=== PATIENT | male | born 1965 | race African-American/Black ===

== ENCOUNTER 2020-04-22 12:09 | Emergency (ER) | payer MEDICAID, OTHER ==
[~2020-04-22] VITALS: Ht 165.1 cm; Wt 87.9 kg
[2020-04-22 15:13] LABS: CHLORIDE 111 mEq/L (98-107)
[2020-04-22 15:16] LABS: BASOPHILS % 0.8 % (0.0-2.0); EOSINOPHILS % 4.3 % (0.0-5.0); HEMATOCRIT. 30.8 % (42.0-52.0); LYMPHOCYTES % 25.5 % (20.0-50.0); MEAN CORPUSCULAR HEMOGLOBIN 30.6 pg (28.0-32.0); MEAN CORPUSCULAR VOLUME 93.9 fL (80.0-94.0); MEAN PLATELET VOLUME 9.2 fl (7.4-10.4); MONOCYTES % 8.9 % (2.0-8.0); NEUTROPHILS % 60.5 % (40.0-76.0); PLATELET 307 x1000/uL (130-400); RED BLOOD CELL COUNT 3.27 mill/uL (4.7-6.1); RED CELL DISTRIBUTION WIDTH 15.4 % (11.6-14.6)
[2020-04-22 15:37] LABS: PARTIAL THROMBOPLASTIN TIME 27.1 sec (23.4-31.0); PROTHROMBIN TIME 10.1 sec (9.6-11.0)
[2020-04-22 19:09] VITALS: BP 144/85
== END 2020-04-22 19:20 | disposition home or self-care (01) ==
LOC: ER 12:37
DX: T85.09XA Other mechanical complication of ventricular intracranial (communicating) shunt, initial encounter (principal); I12.0 Hypertensive chronic kidney disease with stage 5 chronic kidney disease or end stage renal disease; N18.6 End stage renal disease; Z99.2 Dependence on renal dialysis
CPT/HCPCS: 36415; 71045; 80053; 82962; 85025; 93005; 93971; 99285

== ENCOUNTER 2021-08-20 09:43 | Inpatient (IN) | payer MEDICAID, OTHER ==
[~2021-08-20] VITALS: Ht 165.1 cm; Wt 89.4 kg
[2021-08-20 12:05] LABS: CHLORIDE 94 mEq/L (98-107)
[2021-08-20] MEDS ORDERED: DEXTROSE 50% WATER 50ML SYRINGE IV NR ×2 (12:45→17:00)
[2021-08-20] MEDS ORDERED: INSULIN REGULAR (HUMULIN R) 300UNITS/3ML VIAL IV NR ×2 (12:45→17:00)
[2021-08-20] MEDS ORDERED: ALBUTEROL (0.083%) 2.5MG/3ML NEB HHN NR (12:45)
[2021-08-20] MEDS ORDERED: CALCIUM CHLORIDE 1GM/10ML SYR IV NR ×2 (12:45→17:00)
[2021-08-20 13:27] LABS: BASOPHILS % 0.7 % (0.0-2.0); EOSINOPHILS % 0.3 % (0.0-5.0); HEMATOCRIT. 37.4 % (42.0-52.0); HEMOGLOBIN. 11.9 g/dL (14.0-18.0); LYMPHOCYTES % 9.3 % (20.0-50.0); MEAN CORPUSCULAR HEMOGLOBIN 30.1 pg (28.0-32.0); MEAN CORPUSCULAR VOLUME 94.3 fL (80.0-94.0); MEAN PLATELET VOLUME 9.6 fl (7.4-10.4); MONOCYTES % 10.9 % (2.0-8.0); NEUTROPHILS % 78.8 % (40.0-76.0); PLATELET 375 x1000/uL (130-400); RED BLOOD CELL COUNT 3.97 mill/uL (4.7-6.1); RED CELL DISTRIBUTION WIDTH 16.4 % (11.6-14.6)
[2021-08-20] MEDS ORDERED: DIPHENHYDRAMINE 50MG/ML VIAL IV PRN (13:45)
[2021-08-20] MEDS ORDERED: LORAZEPAM 0.5MG TABLET PO PRN (13:45)
[2021-08-20] MEDS ORDERED: DOCUSATE SODIUM 100MG CAPSULE PO PRN (13:45)
[2021-08-20] MEDS ORDERED: ACETAMINOPHEN 650MG SUPP PR PRN (13:45)
[2021-08-20] MEDS ORDERED: MAGNESIUM/ALUMINUM HYDROXIDE/SIMETHICONE 30ML UDC PO PRN (13:45)
[2021-08-20] MEDS ORDERED: ONDANSETRON HCL 4MG/2ML INJ IV PRN (13:45)
[2021-08-20] MEDS ORDERED: HYDROCODONE/ACETAMINOPHEN 5/325MG TABLET PO PRN (13:45)
[2021-08-20] MEDS ORDERED: IPRATROPIUM/ALBUTEROL 0.5-3(2.5)MG/3ML NEB NEB PRN (13:45)
[2021-08-20] MEDS ORDERED: NALOXONE HCL 0.4MG/ML VIAL IV PRN (14:00)
[2021-08-20] MEDS: METHYLPREDNISOLONE SOD SUCC 40 MG/ML VIAL IV SCH ×2 (14:57→22:00)
[2021-08-20] MEDS ORDERED: AZITHROMYCIN 500 MG in DEXT 5% WATER 250 ML IV SCH (15:00)
[2021-08-20] MEDS ORDERED: CEFTRIAXONE 1 G PREMIX 50 ML IV SCH (15:00)
[2021-08-20] MEDS ORDERED: SODIUM POLYSTYRENE SULFONATE 15 G/60 ML BOT PO NR (17:00)
[2021-08-20] MEDS ORDERED: SODIUM BICARBONATE 8.4% 1 MEQ/ML 50ML SYR IV NR (17:00)
[2021-08-20 18:18] LABS: PROTHROMBIN TIME 10.6 sec (9.6-11.0)
[2021-08-20 18:57] LABS: HEPATITIS B SURFACE ANTIGEN NEGATIVE
[2021-08-20] MEDS: FAMOTIDINE 20MG TABLET PO SCH (21:00)
[2021-08-21] MEDS: METHYLPREDNISOLONE SOD SUCC 40 MG/ML VIAL IV SCH ×3 (06:38→21:12)
[2021-08-21 15:00] VITALS: BP_SYST 123; BP_SYST 126; BP_DIAS 79
[2021-08-21] MEDS ORDERED: CEFTRIAXONE 1,000 MG in DEXTROSE 5% WATER 50 ML IV SCH (15:00)
[2021-08-21 16:00] VITALS: BP 142/84
[2021-08-21] MEDS: CEFTRIAXONE 1,000 MG in DEXTROSE 5% WATER 50 ML IV SCH (16:00)
[2021-08-21] MEDS: AZITHROMYCIN 500 MG in DEXT 5% WATER 250 ML IV SCH (16:30)
[2021-08-21] MEDS ORDERED: APIX5TAB PO (16:36)
[2021-08-21] MEDS ORDERED: CHOL-36 (16:36)
[2021-08-21] MEDS ORDERED: FOLI0.8T23 MT (16:36)
[2021-08-21] MEDS ORDERED: BENA10TA74 PO (16:36)
[2021-08-21] MEDS ORDERED: FURO40TA5 PO (16:36)
[2021-08-21] MEDS ORDERED: ATOR10TA69 PO (16:36)
[2021-08-21] MEDS ORDERED: CALC667C PO (16:36)
[2021-08-21 18:19] LABS: BG BASE EXCESS -6.7 mmol/L (-2.0-2.0); BG CARBOXYHEMOGLOBIN 0.3 % (0.5-1.5); BG DEOXYHEMOGLOBIN 10.2 % (0.0-5.0); BG FRACTION INSPIRED OXYGEN 21; BG HCO3 ACT 18.7 mmol/L (22.0-26.0); BG METHEMOGLOBIN 0.3 % (0.0-1.5); BG OXYGEN SATURATION 89.7 % (92.0-98.5); BG OXYHEMOGLOBIN 89.2 % (94.0-97.0); BG PCO2 37.2 mmHg (35.0-45.0); BG PH 7.319 (7.350-7.450); BG PO2 62.3 mmHg (75.0-100.0); BG SAMPLE SITE LEFT RADIAL; BG TOTAL HEMOGLOBIN 13.3 g/dL (12.0-18.0); BG VENT MODE ROOM AIR
[2021-08-21 20:00] VITALS: BP 130/80
[2021-08-21] MEDS: FAMOTIDINE 20MG TABLET PO SCH (21:12)
[2021-08-21 21:29] LABS: HEMATOCRIT 35.5 % (42.0-52.0); HEMOGLOBIN 11.6 g/dL (14.0-18.0); MEAN CORPUSCULAR HEMOGLOBIN 30.5 pg (28.0-32.0); MEAN CORPUSCULAR VOLUME 93.8 fL (80.0-94.0); PLATELET 445 x1000/uL (130-400); RED BLOOD CELL COUNT 3.78 mill/uL (4.7-6.1); RED CELL DISTRIBUTION WIDTH 16.2 % (11.6-14.6)
[2021-08-21 21:42] LABS: CHLORIDE 94 mEq/L (98-107)
[2021-08-21 21:53] LABS: CREATINE KINASE MB FRACTION 4.9 ng/mL (0.5-3.6)
[2021-08-21 22:50] LABS: CREATINE KINASE 1221 IU/L (39-308)
[2021-08-22] VITALS: BP 150/89
[2021-08-22 04:48] LABS: HEPATITIS B SURFACE AB < 3.1 mIU/mL
[2021-08-22 06:00] VITALS: BP 146/84
[2021-08-22] MEDS: METHYLPREDNISOLONE SOD SUCC 40 MG/ML VIAL IV SCH ×3 (06:31→21:22)
[2021-08-22] MEDS: ACETAMINOPHEN 325MG TABLET PO PRN (10:03)
[2021-08-22 10:47] LABS: HEMATOCRIT. 36.8 % (42.0-52.0); MEAN CORPUSCULAR HEMOGLOBIN 30.3 pg (28.0-32.0); MEAN PLATELET VOLUME 9.9 fl (7.4-10.4); PLATELET 425 x1000/uL (130-400); RED BLOOD CELL COUNT 3.96 mill/uL (4.7-6.1); RED CELL DISTRIBUTION WIDTH 16.5 % (11.6-14.6)
[2021-08-22 12:00] VITALS: BP 123/61
[2021-08-22] MEDS: CEFTRIAXONE 1,000 MG in DEXTROSE 5% WATER 50 ML IV SCH (13:10)
[2021-08-22] MEDS ORDERED: LIDOCAINE HCL/PF 1% 2ML VIAL ONE (13:51)
[2021-08-22] MEDS ORDERED: SODIUM POLYSTYRENE SULFONATE 15 G/60 ML BOT PO NR (14:09)
[2021-08-22] MEDS: AZITHROMYCIN 500 MG in DEXT 5% WATER 250 ML IV SCH (14:37)
[2021-08-22 16:00] VITALS: BP 122/59
[2021-08-22 18:27] LABS: BG BASE EXCESS -10.5 mmol/L (-2.0-2.0); BG CARBOXYHEMOGLOBIN 0.1 % (0.5-1.5); BG DEOXYHEMOGLOBIN 7.3 % (0.0-5.0); BG FRACTION INSPIRED OXYGEN 21; BG METHEMOGLOBIN 0.4 % (0.0-1.5); BG OXYGEN SATURATION 92.7 % (92.0-98.5); BG OXYHEMOGLOBIN 92.2 % (94.0-97.0); BG PCO2 37.8 mmHg (35.0-45.0); BG PH 7.245 (7.350-7.450); BG PO2 82.7 mmHg (75.0-100.0); BG SAMPLE SITE RIGHT RADIAL; BG TOTAL HEMOGLOBIN 12.4 g/dL (12.0-18.0); BG VENT MODE ROOM AIR
[2021-08-22 19:51] LABS: PLATELET ESTIMATE INCREASED
[2021-08-22 20:00] VITALS: BP 120/69
[2021-08-22] MEDS: FAMOTIDINE 20MG TABLET PO SCH (21:22)
[2021-08-23] VITALS: BP 124/82
[2021-08-23 04:00] VITALS: BP 118/74
[2021-08-23] MEDS: METHYLPREDNISOLONE SOD SUCC 40 MG/ML VIAL IV SCH (05:45)
[2021-08-23 08:00] VITALS: BP 111/64
[2021-08-23 08:22] LABS: HEMATOCRIT. 33.5 % (42.0-52.0); HEMOGLOBIN. 10.7 g/dL (14.0-18.0); MEAN CORPUSCULAR HEMOGLOBIN 29.8 pg (28.0-32.0); MEAN CORPUSCULAR VOLUME 93.4 fL (80.0-94.0); MEAN PLATELET VOLUME 10.2 fl (7.4-10.4); PLATELET 455 x1000/uL (130-400); RED BLOOD CELL COUNT 3.58 mill/uL (4.7-6.1); RED CELL DISTRIBUTION WIDTH 15.9 % (11.6-14.6)
[2021-08-23 10:40] LABS: PLATELET ESTIMATE INCREASED
[2021-08-23] MEDS ORDERED: SODIUM POLYSTYRENE SULFONATE 15 G/60 ML BOT PO NR (10:45)
[2021-08-23 12:00] VITALS: BP 121/66
[2021-08-23 16:00] VITALS: BP 138/88
[2021-08-23] MEDS ORDERED: DEXA4TAB PO (16:18)
[2021-08-23] MEDS ORDERED: ALBU90AE INH (16:18)
[2021-08-23] MEDS: AZITHROMYCIN 500 MG in DEXT 5% WATER 250 ML IV SCH (16:59)
[2021-08-23] MEDS: CEFTRIAXONE 1,000 MG in DEXTROSE 5% WATER 50 ML IV SCH (16:59)
[2021-08-23 17:28] LABS: BG BASE EXCESS -8.7 mmol/L (-2.0-2.0); BG CARBOXYHEMOGLOBIN 0.3 % (0.5-1.5); BG DEOXYHEMOGLOBIN 6.5 % (0.0-5.0); BG HCO3 ACT 15.5 mmol/L (22.0-26.0); BG METHEMOGLOBIN 0.1 % (0.0-1.5); BG OXYGEN SATURATION 93.5 % (92.0-98.5); BG OXYHEMOGLOBIN 93.1 % (94.0-97.0); BG PCO2 28.5 mmHg (35.0-45.0); BG PH 7.352 (7.350-7.450); BG PO2 81.8 mmHg (75.0-100.0); BG SAMPLE SITE RIGHT RADIAL; BG TOTAL HEMOGLOBIN 12.4 g/dL (12.0-18.0); BG VENT MODE ROOM AIR
[2021-08-23 20:00] VITALS: BP 128/87
[2021-08-23 20:56] LABS: HEPATITIS B SURFACE ANTIGEN NEGATIVE
[2021-08-23] MEDS: FAMOTIDINE 20MG TABLET PO SCH (21:17)
[2021-08-24] VITALS: BP 126/78
[2021-08-24 04:00] VITALS: BP 128/75
[2021-08-24 08:00] VITALS: BP 132/73
[2021-08-24 08:01] LABS: HEMATOCRIT. 33.4 % (42.0-52.0); HEMOGLOBIN. 10.7 g/dL (14.0-18.0); MEAN CORPUSCULAR HEMOGLOBIN 30.1 pg (28.0-32.0); MEAN CORPUSCULAR VOLUME 93.4 fL (80.0-94.0); MEAN PLATELET VOLUME 9.7 fl (7.4-10.4); PLATELET 441 x1000/uL (130-400); RED BLOOD CELL COUNT 3.57 mill/uL (4.7-6.1); RED CELL DISTRIBUTION WIDTH 15.8 % (11.6-14.6)
[2021-08-24] MEDS: METHYLPREDNISOLONE SOD SUCC 40 MG/ML VIAL IV SCH (09:21)
[2021-08-24 10:54] LABS: PLATELET ESTIMATE INCREASED
[2021-08-24 12:00] VITALS: BP 131/84
[2021-08-24] MEDS: ENOXAPARIN 100MG/ML SYR SUBCUT SCH (12:23)
[2021-08-24] MEDS: CEFTRIAXONE 1,000 MG in DEXTROSE 5% WATER 50 ML IV SCH (13:58)
[2021-08-24] MEDS: AZITHROMYCIN 500 MG in DEXT 5% WATER 250 ML IV SCH (15:10)
[2021-08-24 16:00] VITALS: BP 143/74
[2021-08-24 20:00] VITALS: BP 112/72
[2021-08-24] MEDS: FAMOTIDINE 20MG TABLET PO SCH (21:35)
[2021-08-25] VITALS (7 sets, daily range): BP systolic 122–207; BP diastolic 63–104
[2021-08-25] MEDS: MORPHINE SULFATE 2 MG/ML CPJ (NOT FOR IM USE) IV PRN ×2 (04:00→09:59)
[2021-08-25] MEDS: CLONIDINE 0.1MG TABLET PO PRN ×2 (04:15→21:47)
[2021-08-25 06:12] LABS: HEMATOCRIT. 34.9 % (42.0-52.0); HEMOGLOBIN. 11.4 g/dL (14.0-18.0); MEAN CORPUSCULAR HEMOGLOBIN 30.5 pg (28.0-32.0); MEAN PLATELET VOLUME 9.7 fl (7.4-10.4); PLATELET 426 x1000/uL (130-400); RED BLOOD CELL COUNT 3.75 mill/uL (4.7-6.1)
[2021-08-25] MEDS: METHYLPREDNISOLONE SOD SUCC 40 MG/ML VIAL IV SCH (09:53)
[2021-08-25] MEDS: ENOXAPARIN 100MG/ML SYR SUBCUT SCH (13:28)
[2021-08-25] MEDS: CEFTRIAXONE 1,000 MG in DEXTROSE 5% WATER 50 ML IV SCH (14:09)
[2021-08-25 17:43] LABS: PLATELET ESTIMATE INCREASED
[2021-08-25] MEDS: FAMOTIDINE 20MG TABLET PO SCH (21:48)
[2021-08-25] MEDS: ACETAMINOPHEN 325MG TABLET PO PRN (21:48)
[2021-08-26 04:00] VITALS: BP 131/78
[2021-08-26] MEDS ORDERED: IOHEXOL-300 100 ML BOTTLE ONE (07:28)
[2021-08-26] MEDS ORDERED: FENTANYL CITRATE/PF 50MCG/ML 2ML VIAL ONE (07:28)
[2021-08-26] MEDS ORDERED: LIDOCAINE HCL 1% 20ML VIAL (Pyxis) INJ ONE (07:28)
[2021-08-26] MEDS ORDERED: HEPARIN 1,000 UNITS PREMIX 0 ML IV ONE (07:28)
[2021-08-26 08:00] VITALS: BP 150/87
[2021-08-26] MEDS: METHYLPREDNISOLONE SOD SUCC 40 MG/ML VIAL IV SCH (08:57)
[2021-08-26] MEDS: MORPHINE SULFATE 2 MG/ML CPJ (NOT FOR IM USE) IV PRN (08:58)
[2021-08-26 12:00] VITALS: BP 138/70
[2021-08-26] MEDS: ENOXAPARIN 100MG/ML SYR SUBCUT SCH (12:13)
[2021-08-26] MEDS: CEFTRIAXONE 1,000 MG in DEXTROSE 5% WATER 50 ML IV SCH (13:59)
[2021-08-26 16:00] VITALS: BP 147/73
[2021-08-26] MEDS: GABAPENTIN 100MG CAPSULE PO SCH ×2 (17:44→22:05)
[2021-08-26 20:00] VITALS: BP 138/67
[2021-08-26] MEDS: FAMOTIDINE 20MG TABLET PO SCH (22:05)
[2021-08-26 22:06] LABS: HEMATOCRIT. 37.1 % (42.0-52.0); HEMOGLOBIN. 11.6 g/dL (14.0-18.0); MEAN PLATELET VOLUME 9.9 fl (7.4-10.4); PLATELET 383 x1000/uL (130-400); RED BLOOD CELL COUNT 3.87 mill/uL (4.7-6.1); RED CELL DISTRIBUTION WIDTH 16.2 % (11.6-14.6)
[2021-08-26 23:03] LABS: PLATELET ESTIMATE NORMAL
[2021-08-27] VITALS: BP 134/67
[2021-08-27] MEDS: MORPHINE SULFATE 2 MG/ML CPJ (NOT FOR IM USE) IV PRN ×2 (02:15→09:09)
[2021-08-27 04:00] VITALS: BP 164/94
[2021-08-27] MEDS: CLONIDINE 0.1MG TABLET PO PRN (05:37)
[2021-08-27 07:29] LABS: HEMATOCRIT 30.3 % (42.0-52.0); HEMOGLOBIN 9.8 g/dL (14.0-18.0); MEAN CORPUSCULAR HEMOGLOBIN 30.3 pg (28.0-32.0); MEAN CORPUSCULAR VOLUME 93.7 fL (80.0-94.0); PLATELET 375 x1000/uL (130-400); RED BLOOD CELL COUNT 3.23 mill/uL (4.7-6.1); RED CELL DISTRIBUTION WIDTH 15.9 % (11.6-14.6)
[2021-08-27 08:00] VITALS: BP 128/79
[2021-08-27] MEDS: METHYLPREDNISOLONE SOD SUCC 40 MG/ML VIAL IV SCH (09:09)
[2021-08-27] MEDS: GABAPENTIN 100MG CAPSULE PO SCH ×2 (09:09→21:13)
[2021-08-27 12:00] VITALS: BP 126/73
[2021-08-27] MEDS: ENOXAPARIN 100MG/ML SYR SUBCUT SCH (12:26)
[2021-08-27] MEDS: CEFTRIAXONE 1,000 MG in DEXTROSE 5% WATER 50 ML IV SCH (12:27)
[2021-08-27 16:00] VITALS: BP 131/72
[2021-08-27 20:00] VITALS: BP 155/88
[2021-08-27] MEDS: FAMOTIDINE 20MG TABLET PO SCH (21:13)
[2021-08-28 00:26] VITALS: BP 99/54
[2021-08-28 04:00] VITALS: BP 142/66
[2021-08-28 08:00] VITALS: BP 138/68
[2021-08-28] MEDS: METHYLPREDNISOLONE SOD SUCC 40 MG/ML VIAL IV SCH (08:57)
[2021-08-28] MEDS: GABAPENTIN 100MG CAPSULE PO SCH ×2 (08:57→21:25)
[2021-08-28] MEDS: ENOXAPARIN 100MG/ML SYR SUBCUT SCH (11:40)
[2021-08-28] MEDS: CEFTRIAXONE 1,000 MG in DEXTROSE 5% WATER 50 ML IV SCH (11:50)
[2021-08-28] MEDS: MORPHINE SULFATE 2 MG/ML CPJ (NOT FOR IM USE) IV PRN (11:55)
[2021-08-28 12:00] VITALS: BP 163/86
[2021-08-28] MEDS ORDERED: CEFTRIAXONE 1 G PREMIX 50 ML IV SCH (12:00)
[2021-08-28 16:00] VITALS: BP 136/63
[2021-08-28 20:00] VITALS: BP 145/82
[2021-08-28] MEDS: FAMOTIDINE 20MG TABLET PO SCH (21:25)
[2021-08-29] VITALS: BP 177/132
[2021-08-29] MEDS: CLONIDINE 0.1MG TABLET PO PRN (00:28)
[2021-08-29 04:00] VITALS: BP 120/79
[2021-08-29 08:00] VITALS: BP 125/66
[2021-08-29] MEDS: METHYLPREDNISOLONE SOD SUCC 40 MG/ML VIAL IV SCH (08:27)
[2021-08-29] MEDS: GABAPENTIN 100MG CAPSULE PO SCH ×2 (08:27→21:39)
[2021-08-29] MEDS: MORPHINE SULFATE 2 MG/ML CPJ (NOT FOR IM USE) IV PRN (08:28)
[2021-08-29] MEDS: ENOXAPARIN 100MG/ML SYR SUBCUT SCH (11:59)
[2021-08-29 12:00] VITALS: BP 120/61
[2021-08-29] MEDS: CEFTRIAXONE 1,000 MG in DEXTROSE 5% WATER 50 ML IV SCH (12:00)
[2021-08-29 16:00] VITALS: BP_SYST 114; BP_SYST 138; BP_SYST 156; BP_DIAS 70; BP_DIAS 72; BP_DIAS 83
[2021-08-29 20:00] VITALS: BP 128/69
[2021-08-29] MEDS: FAMOTIDINE 20MG TABLET PO SCH (21:39)
[2021-08-30] VITALS: BP_SYST 107; BP_SYST 159; BP_DIAS 64; BP_DIAS 85
[2021-08-30 04:00] VITALS: BP 156/76
[2021-08-30 08:00] VITALS: BP 131/62
[2021-08-30] MEDS: GABAPENTIN 100MG CAPSULE PO SCH ×2 (09:07→22:07)
[2021-08-30] MEDS: METHYLPREDNISOLONE SOD SUCC 40 MG/ML VIAL IV SCH (09:07)
[2021-08-30] MEDS: ENOXAPARIN 100MG/ML SYR SUBCUT SCH (09:08)
[2021-08-30 09:17] LABS: BASOPHILS % 0.4 % (0.0-2.0); LYMPHOCYTES % 12.3 % (20.0-50.0); MEAN CORPUSCULAR HEMOGLOBIN 29.4 pg (28.0-32.0); MEAN CORPUSCULAR VOLUME 94.9 fL (80.0-94.0); MEAN PLATELET VOLUME 9.9 fl (7.4-10.4); NEUTROPHILS % 75.3 % (40.0-76.0); PLATELET 355 x1000/uL (130-400); RED BLOOD CELL COUNT 3.06 mill/uL (4.7-6.1); RED CELL DISTRIBUTION WIDTH 15.9 % (11.6-14.6)
[2021-08-30] MEDS: IPRATROPIUM/ALBUTEROL 0.5-3(2.5)MG/3ML NEB NEB SCH (09:58)
[2021-08-30 12:00] VITALS: BP 136/62
[2021-08-30] MEDS: HYDROCODONE/ACETAMINOPHEN 5/325MG TABLET PO PRN ×2 (13:09→22:09)
[2021-08-30 16:00] VITALS: BP 151/86
[2021-08-30 20:36] LABS: HEPATITIS B SURFACE ANTIGEN NEGATIVE
[2021-08-30] MEDS ORDERED: EPOETIN ALFA-EPBX 10,000 UNIT/ML VIAL SUBCUT SCH (21:00)
[2021-08-30] MEDS: FAMOTIDINE 20MG TABLET PO SCH (22:07)
[2021-08-30] MEDS: CLONIDINE 0.1MG TABLET PO PRN (22:08)
[2021-08-31] VITALS: BP 116/62
[2021-08-31 04:00] VITALS: BP 120/50
[2021-08-31 08:00] VITALS: BP 163/83
[2021-08-31 08:10] LABS: HEMATOCRIT. 32.2 % (42.0-52.0); HEMOGLOBIN. 10.2 g/dL (14.0-18.0); MEAN CORPUSCULAR HEMOGLOBIN 30.1 pg (28.0-32.0); MEAN CORPUSCULAR VOLUME 95.5 fL (80.0-94.0); MEAN PLATELET VOLUME 10.5 fl (7.4-10.4); PLATELET 372 x1000/uL (130-400); RED BLOOD CELL COUNT 3.37 mill/uL (4.7-6.1)
[2021-08-31] MEDS: METHYLPREDNISOLONE SOD SUCC 40 MG/ML VIAL IV SCH (09:33)
[2021-08-31] MEDS: GABAPENTIN 100MG CAPSULE PO SCH ×2 (09:33→23:50)
[2021-08-31] MEDS: ENOXAPARIN 100MG/ML SYR SUBCUT SCH (09:34)
[2021-08-31] MEDS: EPOETIN ALFA-EPBX 10,000 UNIT/ML VIAL SUBCUT SCH (09:38)
[2021-08-31] MEDS: MORPHINE SULFATE 2 MG/ML CPJ (NOT FOR IM USE) IV PRN (09:49)
[2021-08-31 12:00] VITALS: BP 120/75
[2021-08-31 13:50] LABS: PLATELET ESTIMATE NORMAL
[2021-08-31 16:00] VITALS: BP 95/52
[2021-08-31 20:27] VITALS: BP 152/76
[2021-08-31] MEDS: FAMOTIDINE 20MG TABLET PO SCH (23:50)
[2021-09-01 00:30] VITALS: BP 168/88
[2021-09-01 04:00] VITALS: BP 148/58
[2021-09-01 06:10] LABS: BASOPHILS % 0.2 % (0.0-2.0); HEMATOCRIT. 30.1 % (42.0-52.0); HEMOGLOBIN. 9.5 g/dL (14.0-18.0); LYMPHOCYTES % 12.4 % (20.0-50.0); MEAN CORPUSCULAR HEMOGLOBIN 29.9 pg (28.0-32.0); MEAN CORPUSCULAR VOLUME 94.2 fL (80.0-94.0); MEAN PLATELET VOLUME 10.4 fl (7.4-10.4); MONOCYTES % 10.5 % (2.0-8.0); NEUTROPHILS % 76.9 % (40.0-76.0); PLATELET 381 x1000/uL (130-400); RED BLOOD CELL COUNT 3.19 mill/uL (4.7-6.1)
[2021-09-01] MEDS: GABAPENTIN 100MG CAPSULE PO SCH ×2 (09:51→20:47)
[2021-09-01] MEDS: METHYLPREDNISOLONE SOD SUCC 40 MG/ML VIAL IV SCH (09:51)
[2021-09-01] MEDS: SODIUM POLYSTYRENE SULFONATE 15 G/60 ML BOT PO SCH ×2 (11:00→13:02)
[2021-09-01] MEDS: ENOXAPARIN 100MG/ML SYR SUBCUT SCH ×2 (11:00→13:03)
[2021-09-01 12:00] VITALS: BP 129/60
[2021-09-01 16:00] VITALS: BP 176/79
[2021-09-01 20:00] VITALS: BP 117/56
[2021-09-01] MEDS: FAMOTIDINE 20MG TABLET PO SCH (20:47)
[2021-09-02] VITALS: BP 109/62
[2021-09-02 04:00] VITALS: BP 115/59
[2021-09-02 08:31] LABS: HEMATOCRIT. 33.8 % (42.0-52.0); HEMOGLOBIN. 10.6 g/dL (14.0-18.0); MEAN CORPUSCULAR HEMOGLOBIN 29.7 pg (28.0-32.0); MEAN PLATELET VOLUME 11.3 fl (7.4-10.4); PLATELET 264 x1000/uL (130-400); RED BLOOD CELL COUNT 3.56 mill/uL (4.7-6.1); RED CELL DISTRIBUTION WIDTH 15.7 % (11.6-14.6)
[2021-09-02] MEDS: GABAPENTIN 100MG CAPSULE PO SCH ×2 (08:49→20:38)
[2021-09-02] MEDS ORDERED: SODIUM BICARBONATE 8.4% 1 MEQ/ML 50ML SYR IV NR (10:45)
[2021-09-02] MEDS ORDERED: DEXTROSE 50% WATER 50ML SYRINGE IV NR (10:45)
[2021-09-02] MEDS ORDERED: SODIUM POLYSTYRENE SULFONATE 15 G/60 ML BOT PO NR (10:45)
[2021-09-02] MEDS ORDERED: INSULIN REGULAR (HUMULIN R) 300UNITS/3ML VIAL IV NR (10:45)
[2021-09-02] MEDS ORDERED: ALBUTEROL (0.083%) 2.5MG/3ML NEB HHN NR (10:45)
[2021-09-02] MEDS: ENOXAPARIN 100MG/ML SYR SUBCUT SCH (10:56)
[2021-09-02] MEDS ORDERED: CALCIUM GLUCONATE 1GM PREMIX 50 ML IV NR (11:30)
[2021-09-02 12:00] VITALS: BP 164/84
[2021-09-02] MEDS ORDERED: VANCOMYCIN 2,000 MG in DEXT 5% WATER 500 ML IV NR (13:00)
[2021-09-02 16:00] VITALS: BP 120/57
[2021-09-02 17:55] LABS: PLATELET ESTIMATE NORMAL
[2021-09-02] MEDS: FAMOTIDINE 20MG TABLET PO SCH (20:38)
[2021-09-02] MEDS: PIPERACILLIN/TAZOBACTAM 3.375 G in DEXTROSE 5% WATER 50 ML IV SCH (20:41)
[2021-09-02 20:43] VITALS: BP 184/85
[2021-09-03] VITALS: BP 171/87
[2021-09-03] MEDS: CLONIDINE 0.1MG TABLET PO PRN (00:17)
[2021-09-03] MEDS: ACETAMINOPHEN 325MG TABLET PO PRN (00:18)
[2021-09-03 04:00] VITALS: BP 98/45
[2021-09-03 08:00] VITALS: BP 114/54
[2021-09-03] MEDS: GABAPENTIN 100MG CAPSULE PO SCH ×2 (09:31→21:22)
[2021-09-03] MEDS: PIPERACILLIN/TAZOBACTAM 3.375 G in DEXTROSE 5% WATER 50 ML IV SCH ×2 (09:31→21:22)
[2021-09-03] MEDS: GUAIFENESIN 200MG/10ML SUGAR FREE UDC PO PRN ×2 (10:08→18:47)
[2021-09-03] MEDS: ENOXAPARIN 100MG/ML SYR SUBCUT SCH (10:08)
[2021-09-03 12:00] VITALS: BP 143/76
[2021-09-03] MEDS: HYDROCODONE/ACETAMINOPHEN 5/325MG TABLET PO PRN (13:13)
[2021-09-03 16:00] VITALS: BP 133/75
[2021-09-03] MEDS: FAMOTIDINE 20MG TABLET PO SCH (21:23)
[2021-09-04] VITALS: BP 113/55
[2021-09-04 00:35] LABS: HEMATOCRIT. 25.7 % (42.0-52.0); MEAN CORPUSCULAR VOLUME 93.6 fL (80.0-94.0); MEAN PLATELET VOLUME 10.7 fl (7.4-10.4); PLATELET 283 x1000/uL (130-400); RED BLOOD CELL COUNT 2.75 mill/uL (4.7-6.1); RED CELL DISTRIBUTION WIDTH 15.4 % (11.6-14.6)
[2021-09-04 01:10] LABS: HEPATITIS B SURFACE ANTIGEN NEGATIVE
[2021-09-04 01:42] LABS: PLATELET ESTIMATE NORMAL
[2021-09-04 04:00] VITALS: BP 109/52
[2021-09-04 08:00] VITALS: BP 114/58
[2021-09-04] MEDS: GABAPENTIN 100MG CAPSULE PO SCH ×2 (09:09→20:52)
[2021-09-04] MEDS: PIPERACILLIN/TAZOBACTAM 3.375 G in DEXTROSE 5% WATER 50 ML IV SCH ×2 (09:09→20:51)
[2021-09-04] MEDS: ENOXAPARIN 100MG/ML SYR SUBCUT SCH (10:47)
[2021-09-04] MEDS ORDERED: INSULIN REGULAR (HUMULIN R) 300UNITS/3ML VIAL IV NR (11:23)
[2021-09-04] MEDS ORDERED: DEXTROSE 50% WATER 50ML SYRINGE IV NR (11:24)
[2021-09-04] MEDS ORDERED: SODIUM BICARBONATE 8.4% 1 MEQ/ML 50ML SYR IV NR (11:25)
[2021-09-04 12:00] VITALS: BP 108/56
[2021-09-04] MEDS ORDERED: CALCIUM GLUCONATE 1GM PREMIX 50 ML IV NR (13:00)
[2021-09-04 16:00] VITALS: BP 115/76
[2021-09-04 20:00] VITALS: BP 123/70
[2021-09-04] MEDS: FAMOTIDINE 20MG TABLET PO SCH (20:52)
[2021-09-04] MEDS: EPOETIN ALFA-EPBX 10,000 UNIT/ML VIAL SUBCUT SCH (22:15)
[2021-09-04] MEDS: ACETAMINOPHEN 325MG TABLET PO PRN (23:38)
[2021-09-05] VITALS: BP 136/72
[2021-09-05 04:00] VITALS: BP 111/56
[2021-09-05 08:00] VITALS: BP 125/69
[2021-09-05 08:03] LABS: BASOPHILS % 0.6 % (0.0-2.0); EOSINOPHILS % 0.1 % (0.0-5.0); HEMOGLOBIN. 7.9 g/dL (14.0-18.0); LYMPHOCYTES % 9.3 % (20.0-50.0); MEAN CORPUSCULAR HEMOGLOBIN 29.9 pg (28.0-32.0); MEAN CORPUSCULAR VOLUME 94.1 fL (80.0-94.0); MEAN PLATELET VOLUME 9.8 fl (7.4-10.4); MONOCYTES % 9.9 % (2.0-8.0); NEUTROPHILS % 80.1 % (40.0-76.0); PLATELET 300 x1000/uL (130-400); RED BLOOD CELL COUNT 2.65 mill/uL (4.7-6.1); RED CELL DISTRIBUTION WIDTH 15.5 % (11.6-14.6)
[2021-09-05] MEDS: PIPERACILLIN/TAZOBACTAM 3.375 G in DEXTROSE 5% WATER 50 ML IV SCH (08:50)
[2021-09-05] MEDS: GABAPENTIN 100MG CAPSULE PO SCH ×2 (08:50→21:38)
[2021-09-05 12:00] VITALS: BP 116/62
[2021-09-05] MEDS ORDERED: LIDOCAINE HCL 1% 20ML VIAL (Pyxis) INJ ONE (12:49)
[2021-09-05 16:00] VITALS: BP 143/77
[2021-09-05] MEDS ORDERED: VANCOMYCIN 1G PREMIX 200 ML IV NR (18:00)
[2021-09-05 20:00] VITALS: BP 110/58
[2021-09-05] MEDS: MEROPENEM 1,000 MG in SODIUM CHLORIDE 0.9% 100 ML IV SCH (20:59)
[2021-09-05] MEDS: FAMOTIDINE 20MG TABLET PO SCH (21:38)
[2021-09-06] VITALS: BP 114/51
[2021-09-06 04:00] VITALS: BP 152/68
[2021-09-06 07:02] LABS: HEMATOCRIT. 24.4 % (42.0-52.0); HEMOGLOBIN. 7.8 g/dL (14.0-18.0); MEAN CORPUSCULAR VOLUME 93.8 fL (80.0-94.0); MEAN PLATELET VOLUME 10.3 fl (7.4-10.4); PLATELET 254 x1000/uL (130-400); RED CELL DISTRIBUTION WIDTH 15.6 % (11.6-14.6)
[2021-09-06 07:40] VITALS: BP 127/73
[2021-09-06] MEDS: GABAPENTIN 100MG CAPSULE PO SCH ×2 (08:47→21:44)
[2021-09-06 11:23] LABS: PLATELET ESTIMATE NORMAL
[2021-09-06 12:00] VITALS: BP 125/71
[2021-09-06] MEDS: MEROPENEM 1,000 MG in SODIUM CHLORIDE 0.9% 100 ML IV SCH (12:23)
[2021-09-06 16:00] VITALS: BP 135/63
[2021-09-06] MEDS: IPRATROPIUM/ALBUTEROL 0.5-3(2.5)MG/3ML NEB NEB SCH (16:48)
[2021-09-06 20:00] VITALS: BP 143/81
[2021-09-06 20:48] LABS: HEPATITIS B SURFACE ANTIGEN NEGATIVE
[2021-09-06] MEDS: FAMOTIDINE 20MG TABLET PO SCH (21:44)
[2021-09-07] VITALS: BP 129/58
[2021-09-07 04:00] VITALS: BP 132/61
[2021-09-07 06:12] LABS: CHLORIDE 96 mEq/L (98-107)
[2021-09-07 06:29] LABS: BASOPHILS % 0.3 % (0.0-2.0); EOSINOPHILS % 1.6 % (0.0-5.0); HEMATOCRIT. 23.8 % (42.0-52.0); HEMOGLOBIN. 7.6 g/dL (14.0-18.0); LYMPHOCYTES % 9.4 % (20.0-50.0); MEAN CORPUSCULAR HEMOGLOBIN 29.8 pg (28.0-32.0); MEAN PLATELET VOLUME 9.9 fl (7.4-10.4); MONOCYTES % 8.2 % (2.0-8.0); NEUTROPHILS % 80.5 % (40.0-76.0); PLATELET 243 x1000/uL (130-400); RED BLOOD CELL COUNT 2.53 mill/uL (4.7-6.1); RED CELL DISTRIBUTION WIDTH 15.4 % (11.6-14.6)
[2021-09-07] MEDS: IPRATROPIUM/ALBUTEROL 0.5-3(2.5)MG/3ML NEB NEB SCH ×3 (07:41→18:00)
[2021-09-07 08:00] VITALS: BP 126/56
[2021-09-07] MEDS: GABAPENTIN 100MG CAPSULE PO SCH ×2 (09:08→21:05)
[2021-09-07 12:00] VITALS: BP 120/68
[2021-09-07] MEDS: MEROPENEM 1,000 MG in SODIUM CHLORIDE 0.9% 100 ML IV SCH (12:57)
[2021-09-07 16:00] VITALS: BP 120/80
[2021-09-07 20:00] VITALS: BP 155/78
[2021-09-07] MEDS: FAMOTIDINE 20MG TABLET PO SCH (21:05)
[2021-09-08] VITALS: BP 141/75
[2021-09-08 04:00] VITALS: BP 100/95
[2021-09-08 08:00] VITALS: BP 107/54
[2021-09-08] MEDS: ACETAMINOPHEN 325MG TABLET PO PRN (09:00)
[2021-09-08] MEDS: GABAPENTIN 100MG CAPSULE PO SCH ×2 (09:00→21:26)
[2021-09-08] MEDS: IPRATROPIUM/ALBUTEROL 0.5-3(2.5)MG/3ML NEB NEB SCH ×3 (10:44→16:19)
[2021-09-08 12:00] VITALS: BP 100/54
[2021-09-08] MEDS: MEROPENEM 1,000 MG in SODIUM CHLORIDE 0.9% 100 ML IV SCH (12:41)
[2021-09-08 16:00] VITALS: BP 121/58
[2021-09-08 20:00] VITALS: BP 108/72
[2021-09-08] MEDS: FAMOTIDINE 20MG TABLET PO SCH (21:27)
[2021-09-09] VITALS: BP 128/71
[2021-09-09] MEDS: IPRATROPIUM/ALBUTEROL 0.5-3(2.5)MG/3ML NEB NEB SCH ×4 (03:30→21:43)
[2021-09-09 04:00] VITALS: BP 128/69
[2021-09-09 08:00] VITALS: BP 140/71
[2021-09-09] MEDS: GABAPENTIN 100MG CAPSULE PO SCH ×2 (09:41→21:27)
[2021-09-09 12:00] VITALS: BP 136/60
[2021-09-09] MEDS: MEROPENEM 1,000 MG in SODIUM CHLORIDE 0.9% 100 ML IV SCH (13:45)
[2021-09-09] MEDS ORDERED: VANCOMYCIN 1GM PMX (XELLIA) 200 ML IV SCH (15:00)
[2021-09-09 15:43] LABS: HEMATOCRIT. 25.3 % (42.0-52.0); HEMOGLOBIN. 7.9 g/dL (14.0-18.0); MEAN CORPUSCULAR HEMOGLOBIN 29.8 pg (28.0-32.0); MEAN CORPUSCULAR VOLUME 95.1 fL (80.0-94.0); MEAN PLATELET VOLUME 9.4 fl (7.4-10.4); PLATELET 235 x1000/uL (130-400); RED BLOOD CELL COUNT 2.66 mill/uL (4.7-6.1); RED CELL DISTRIBUTION WIDTH 15.6 % (11.6-14.6)
[2021-09-09 15:58] LABS: CHLORIDE 98 mEq/L (98-107)
[2021-09-09 16:30] VITALS: BP 119/64
[2021-09-09 16:48] LABS: PLATELET ESTIMATE NORMAL
[2021-09-09 20:10] VITALS: BP 130/73
[2021-09-09] MEDS: FAMOTIDINE 20MG TABLET PO SCH (21:27)
[2021-09-09] MEDS: GUAIFENESIN 200MG/10ML SUGAR FREE UDC PO PRN (22:43)
[2021-09-10] VITALS (10 sets, daily range): BP systolic 109–142; BP diastolic 51–86
[2021-09-10] MEDS: IPRATROPIUM/ALBUTEROL 0.5-3(2.5)MG/3ML NEB NEB SCH ×4 (04:14→18:00)
[2021-09-10 06:58] LABS: BASOPHILS % 0.6 % (0.0-2.0); EOSINOPHILS % 1.8 % (0.0-5.0); HEMATOCRIT. 21.4 % (42.0-52.0); LYMPHOCYTES % 10.3 % (20.0-50.0); MEAN PLATELET VOLUME 9.3 fl (7.4-10.4); MONOCYTES % 9.2 % (2.0-8.0); NEUTROPHILS % 78.1 % (40.0-76.0); PLATELET 213 x1000/uL (130-400); RED BLOOD CELL COUNT 2.25 mill/uL (4.7-6.1); RED CELL DISTRIBUTION WIDTH 15.4 % (11.6-14.6)
[2021-09-10 08:28] LABS: HEMOGLOBIN. 6.8 g/dL (14.0-18.0)
[2021-09-10] MEDS ORDERED: HEPARIN 1000 UNITS/ML 10ML ONE (08:46)
[2021-09-10] MEDS: GABAPENTIN 100MG CAPSULE PO SCH ×2 (11:59→21:59)
[2021-09-10] MEDS: ACETAMINOPHEN 325MG TABLET PO PRN (11:59)
[2021-09-10] MEDS: MEROPENEM 1,000 MG in SODIUM CHLORIDE 0.9% 100 ML IV SCH (14:36)
[2021-09-10] MEDS: FAMOTIDINE 20MG TABLET PO SCH (21:59)
[2021-09-10] MEDS: EPOETIN ALFA-EPBX 10,000 UNIT/ML VIAL SUBCUT SCH (21:59)
[2021-09-11] VITALS (21 sets, daily range): BP systolic 102–141; BP diastolic 52–83
[2021-09-11 01:47] LABS: HEMOGLOBIN 8.3 g/dL (14.0-18.0)
[2021-09-11 06:26] LABS: EOSINOPHILS % 2.6 % (0.0-5.0); HEMATOCRIT. 23.5 % (42.0-52.0); HEMOGLOBIN. 7.5 g/dL (14.0-18.0); LYMPHOCYTES % 9.4 % (20.0-50.0); MEAN CORPUSCULAR VOLUME 90.9 fL (80.0-94.0); MEAN PLATELET VOLUME 9.4 fl (7.4-10.4); MONOCYTES % 10.9 % (2.0-8.0); NEUTROPHILS % 76.1 % (40.0-76.0); PLATELET 220 x1000/uL (130-400); RED BLOOD CELL COUNT 2.59 mill/uL (4.7-6.1); RED CELL DISTRIBUTION WIDTH 18.8 % (11.6-14.6)
[2021-09-11] MEDS: IPRATROPIUM/ALBUTEROL 0.5-3(2.5)MG/3ML NEB NEB SCH ×4 (08:02→20:45)
[2021-09-11] MEDS: GABAPENTIN 100MG CAPSULE PO SCH ×2 (09:00→21:44)
[2021-09-11 09:17] LABS: PROTHROMBIN TIME 10.9 sec (9.6-11.0)
[2021-09-11 09:29] LABS: FIBRINOGEN > 900 mg/dL (200-400)
[2021-09-11] MEDS ORDERED: IOHEXOL-300 100 ML BOTTLE ONE (10:23)
[2021-09-11] MEDS ORDERED: LIDOCAINE HCL 1% 20ML VIAL (Pyxis) INJ ONE (10:23)
[2021-09-11] MEDS ORDERED: DEXTROSE 50% WATER 50ML SYRINGE IV NR (11:00)
[2021-09-11] MEDS ORDERED: SODIUM BICARBONATE 8.4% 1 MEQ/ML 50ML SYR IV NR (11:00)
[2021-09-11] MEDS ORDERED: IPRATROPIUM/ALBUTEROL 0.5-3(2.5)MG/3ML NEB HHN NR (11:00)
[2021-09-11] MEDS ORDERED: INSULIN REGULAR (HUMULIN R) UD 100 UNITS/ML SYR IV NR (11:30)
[2021-09-11] MEDS ORDERED: CALCIUM GLUCONATE 1GM PREMIX 50 ML IV NR (12:00)
[2021-09-11] MEDS ORDERED: VANCOMYCIN 1GM PMX (XELLIA) 200 ML IV SCH (15:00)
[2021-09-11] MEDS: MEROPENEM 1,000 MG in SODIUM CHLORIDE 0.9% 100 ML IV SCH (17:59)
[2021-09-11 20:02] LABS: HEPATITIS B SURFACE ANTIGEN NEGATIVE
[2021-09-11] MEDS: FAMOTIDINE 20MG TABLET PO SCH (21:44)
[2021-09-12] VITALS: BP 110/57
[2021-09-12] MEDS: IPRATROPIUM/ALBUTEROL 0.5-3(2.5)MG/3ML NEB NEB SCH ×4 (00:51→18:00)
[2021-09-12 04:00] VITALS: BP 106/58
[2021-09-12 06:52] LABS: BASOPHILS % 0.9 % (0.0-2.0); EOSINOPHILS % 2.8 % (0.0-5.0); HEMATOCRIT. 24.7 % (42.0-52.0); HEMOGLOBIN. 8.1 g/dL (14.0-18.0); MEAN CORPUSCULAR HEMOGLOBIN 29.6 pg (28.0-32.0); MEAN PLATELET VOLUME 9.3 fl (7.4-10.4); MONOCYTES % 9.9 % (2.0-8.0); NEUTROPHILS % 75.4 % (40.0-76.0); PLATELET 244 x1000/uL (130-400); RED BLOOD CELL COUNT 2.72 mill/uL (4.7-6.1); RED CELL DISTRIBUTION WIDTH 18.4 % (11.6-14.6)
[2021-09-12 08:00] VITALS: BP_SYST 124; BP_SYST 129; BP_DIAS 57; BP_DIAS 58
[2021-09-12] MEDS: GABAPENTIN 100MG CAPSULE PO SCH ×2 (09:00→22:54)
[2021-09-12] MEDS ORDERED: LIDOCAINE HCL 1% 20ML VIAL (Pyxis) INJ ONE (11:00)
[2021-09-12] MEDS ORDERED: BACITRACIN 15GM TUBE TOP ONE (11:00)
[2021-09-12] MEDS ORDERED: BUPIVACAINE HCL/PF 0.5% (5MG/ML) 10ML ONE (11:01)
[2021-09-12] MEDS ORDERED: POLYMYXIN B SULFATE 500000 UNITS/VIAL ONE (11:01)
[2021-09-12] MEDS ORDERED: HEPARIN SODIUM 1,000 UNIT/1ML VIAL IV ONE (11:01)
[2021-09-12] MEDS ORDERED: MORPHINE SULFATE 2 MG/ML CPJ (NOT FOR IM USE) IV PRN (11:30)
[2021-09-12] MEDS ORDERED: THROMBIN (BOVINE) 5000 UNITS/VIAL TOP ONE (11:31)
[2021-09-12] MEDS ORDERED: PROPOFOL 200MG/20ML VIAL IV ONE (11:42)
[2021-09-12] MEDS ORDERED: FENTANYL CITRATE/PF 50MCG/ML 2ML VIAL ONE (11:42)
[2021-09-12] MEDS ORDERED: MIDAZOLAM HCL 2 MG/2 ML VIAL ONE (11:42)
[2021-09-12] MEDS ORDERED: DEXAMETHASONE 4MG/ML 1ML VIAL ONE (11:50)
[2021-09-12] MEDS ORDERED: ONDANSETRON HCL 4MG/2ML INJ ONE (11:50)
[2021-09-12 12:00] VITALS: BP 120/60
[2021-09-12] MEDS ORDERED: HYDROMORPHONE HCL/PF 2MG/ML (OR) ONE (13:05)
[2021-09-12] MEDS ORDERED: MEPERIDINE HCL/PF 25MG/ML CPJ IV PRN (13:30)
[2021-09-12] MEDS ORDERED: HYDROMORPHONE HCL/PF 2MG/ML CPJ IV PRN (13:30)
[2021-09-12] MEDS ORDERED: ONDANSETRON HCL 4MG/2ML INJ IV PRN (13:30)
[2021-09-12] MEDS ORDERED: LABETALOL 5MG/ML SYR 20 MG/4 ML SYRINGE IV PRN (13:30)
[2021-09-12 16:00] VITALS: BP 130/66
[2021-09-12] MEDS: MEROPENEM 1,000 MG in SODIUM CHLORIDE 0.9% 100 ML IV SCH (17:34)
[2021-09-12 20:00] VITALS: BP 117/72
[2021-09-12] MEDS: EPOETIN ALFA-EPBX 10,000 UNIT/ML VIAL SUBCUT SCH (22:54)
[2021-09-12] MEDS: FAMOTIDINE 20MG TABLET PO SCH (22:54)
[2021-09-13] VITALS: BP 121/62
[2021-09-13] MEDS ORDERED: SODIUM POLYSTYRENE SULFONATE 15 G/60 ML BOT PO SCH (02:45)
[2021-09-13 04:00] VITALS: BP 125/68
[2021-09-13 07:05] LABS: BASOPHILS % 1.6 % (0.0-2.0); EOSINOPHILS % 0.1 % (0.0-5.0); HEMATOCRIT. 27.7 % (42.0-52.0); HEMOGLOBIN. 9.1 g/dL (14.0-18.0); MEAN CORPUSCULAR HEMOGLOBIN 29.6 pg (28.0-32.0); MEAN CORPUSCULAR VOLUME 90.6 fL (80.0-94.0); MEAN PLATELET VOLUME 9.5 fl (7.4-10.4); MONOCYTES % 6.4 % (2.0-8.0); NEUTROPHILS % 82.9 % (40.0-76.0); PLATELET 267 x1000/uL (130-400); RED BLOOD CELL COUNT 3.06 mill/uL (4.7-6.1); RED CELL DISTRIBUTION WIDTH 17.2 % (11.6-14.6)
[2021-09-13 08:00] VITALS: BP 128/82
[2021-09-13] MEDS: GABAPENTIN 100MG CAPSULE PO SCH ×2 (09:15→21:08)
[2021-09-13] MEDS ORDERED: CALCIUM CHLORIDE 1GM/10ML SYR IV NR (10:00)
[2021-09-13] MEDS ORDERED: INSULIN REGULAR (HUMULIN R) 300UNITS/3ML VIAL IV NR (10:00)
[2021-09-13] MEDS ORDERED: DEXTROSE 50% WATER 50ML SYRINGE IV NR (10:00)
[2021-09-13] MEDS ORDERED: SODIUM BICARBONATE 8.4% 1 MEQ/ML 50ML SYR IV NR (10:00)
[2021-09-13 12:00] VITALS: BP 117/72
[2021-09-13 16:00] VITALS: BP 107/65
[2021-09-13] MEDS: MEROPENEM 1,000 MG in SODIUM CHLORIDE 0.9% 100 ML IV SCH (17:42)
[2021-09-13] MEDS ORDERED: VANCOMYCIN 1GM PMX (XELLIA) 200 ML IV NR (18:00)
[2021-09-13 20:00] VITALS: BP 109/73
[2021-09-13] MEDS: FAMOTIDINE 20MG TABLET PO SCH (21:09)
[2021-09-13] MEDS: IPRATROPIUM/ALBUTEROL 0.5-3(2.5)MG/3ML NEB NEB SCH ×2 (21:33)
[2021-09-13] MEDS ORDERED: NALOXONE HCL 0.4MG/ML VIAL IV PRN (22:45)
[2021-09-14] VITALS: BP 102/69
[2021-09-14] MEDS: IPRATROPIUM/ALBUTEROL 0.5-3(2.5)MG/3ML NEB NEB SCH ×4 (01:08→22:46)
[2021-09-14 04:00] VITALS: BP 122/66
[2021-09-14 07:00] LABS: BASOPHILS % 1.2 % (0.0-2.0); EOSINOPHILS % 3.4 % (0.0-5.0); HEMATOCRIT. 26.8 % (42.0-52.0); HEMOGLOBIN. 8.7 g/dL (14.0-18.0); MEAN CORPUSCULAR HEMOGLOBIN 29.4 pg (28.0-32.0); MEAN CORPUSCULAR VOLUME 90.6 fL (80.0-94.0); MEAN PLATELET VOLUME 9.2 fl (7.4-10.4); MONOCYTES % 9.3 % (2.0-8.0); NEUTROPHILS % 69.1 % (40.0-76.0); PLATELET 325 x1000/uL (130-400); RED BLOOD CELL COUNT 2.96 mill/uL (4.7-6.1); RED CELL DISTRIBUTION WIDTH 17.4 % (11.6-14.6)
[2021-09-14 08:00] VITALS: BP 120/60
[2021-09-14] MEDS: GABAPENTIN 100MG CAPSULE PO SCH ×2 (09:10→21:02)
[2021-09-14 11:53] VITALS: BP 122/66
[2021-09-14 16:00] VITALS: BP 120/64
[2021-09-14 16:59] LABS: HEPATITIS B SURFACE ANTIGEN NEGATIVE
[2021-09-14] MEDS: MEROPENEM 1,000 MG in SODIUM CHLORIDE 0.9% 100 ML IV SCH (17:37)
[2021-09-14 20:00] VITALS: BP 126/84
[2021-09-14] MEDS: FAMOTIDINE 20MG TABLET PO SCH (21:01)
[2021-09-15] VITALS: BP 115/61
[2021-09-15] MEDS: IPRATROPIUM/ALBUTEROL 0.5-3(2.5)MG/3ML NEB NEB SCH ×4 (03:01→21:44)
[2021-09-15 04:00] VITALS: BP 106/75
[2021-09-15 05:30] LABS: BASOPHILS % 1.2 % (0.0-2.0); EOSINOPHILS % 4.3 % (0.0-5.0); HEMATOCRIT. 27.7 % (42.0-52.0); HEMOGLOBIN. 8.9 g/dL (14.0-18.0); LYMPHOCYTES % 18.1 % (20.0-50.0); MEAN CORPUSCULAR HEMOGLOBIN 29.3 pg (28.0-32.0); MEAN CORPUSCULAR VOLUME 91.4 fL (80.0-94.0); MEAN PLATELET VOLUME 9.3 fl (7.4-10.4); MONOCYTES % 9.9 % (2.0-8.0); NEUTROPHILS % 66.5 % (40.0-76.0); PLATELET 352 x1000/uL (130-400); RED BLOOD CELL COUNT 3.03 mill/uL (4.7-6.1); RED CELL DISTRIBUTION WIDTH 17.4 % (11.6-14.6)
[2021-09-15 08:00] VITALS: BP 102/66
[2021-09-15] MEDS: GABAPENTIN 100MG CAPSULE PO SCH ×2 (10:49→21:49)
[2021-09-15 12:00] VITALS: BP 135/70
[2021-09-15 16:00] VITALS: BP 102/70
[2021-09-15] MEDS ORDERED: HEPARIN SODIUM 1,000 UNIT/1ML VIAL IV NR (16:15)
[2021-09-15 20:00] VITALS: BP 135/75
[2021-09-15] MEDS: FAMOTIDINE 20MG TABLET PO SCH (21:49)
[2021-09-15] MEDS: EPOETIN ALFA-EPBX 10,000 UNIT/ML VIAL SUBCUT SCH (21:50)
[2021-09-16] VITALS: BP 117/73
[2021-09-16] MEDS: IPRATROPIUM/ALBUTEROL 0.5-3(2.5)MG/3ML NEB NEB SCH ×3 (03:01→20:47)
[2021-09-16 04:00] VITALS: BP 129/78
[2021-09-16 08:19] VITALS: BP 125/66
[2021-09-16] MEDS: GABAPENTIN 100MG CAPSULE PO SCH ×2 (08:49→21:39)
[2021-09-16] MEDS ORDERED: SODIUM CHLORIDE 0.9% INJ 10ML FLUSH IVF ONE (08:50)
[2021-09-16] MEDS ORDERED: BUPIVACAINE HCL/PF 0.5% (5MG/ML) 10ML ONE (08:50)
[2021-09-16] MEDS ORDERED: THROMBIN (BOVINE) 5000 UNITS/VIAL TOP ONE (08:50)
[2021-09-16] MEDS ORDERED: BACITRACIN 15GM TUBE TOP ONE (08:50)
[2021-09-16] MEDS ORDERED: LIDOCAINE HCL 1% 10 MG/ML 10ML VIAL ONE (08:50)
[2021-09-16] MEDS ORDERED: POLYMYXIN B SULFATE 500000 UNITS/VIAL ONE (08:51)
[2021-09-16] MEDS ORDERED: SODIUM CHLORIDE 0.9% 1,000 ML ONE (08:51)
[2021-09-16] MEDS ORDERED: SODIUM CHLORIDE 0.9% IRRIG SOL 1,000 ML IR ONE (08:51)
[2021-09-16] MEDS ORDERED: SODIUM CHLORIDE 0.9% 250 ML IV ONE (08:51)
[2021-09-16] MEDS ORDERED: HEPARIN SODIUM 1,000 UNIT/1ML VIAL IV ONE (08:53)
[2021-09-16 10:18] LABS: BASOPHILS % 1.5 % (0.0-2.0); EOSINOPHILS % 4.3 % (0.0-5.0); HEMATOCRIT. 25.1 % (42.0-52.0); HEMOGLOBIN. 8.1 g/dL (14.0-18.0); LYMPHOCYTES % 16.9 % (20.0-50.0); MEAN CORPUSCULAR HEMOGLOBIN 29.5 pg (28.0-32.0); MEAN CORPUSCULAR VOLUME 91.6 fL (80.0-94.0); MEAN PLATELET VOLUME 9.1 fl (7.4-10.4); MONOCYTES % 11.9 % (2.0-8.0); NEUTROPHILS % 65.4 % (40.0-76.0); PLATELET 375 x1000/uL (130-400); RED BLOOD CELL COUNT 2.74 mill/uL (4.7-6.1); RED CELL DISTRIBUTION WIDTH 17.5 % (11.6-14.6)
[2021-09-16 12:11] VITALS: BP 144/85
[2021-09-16] MEDS ORDERED: CEFAZOLIN SODIUM 1000MG/VIAL ONE (13:21)
[2021-09-16] MEDS ORDERED: HEPARIN 1000 UNITS/ML 10ML ONE (13:48)
[2021-09-16] MEDS ORDERED: METOPROLOL TARTRATE 5MG/5ML VIAL IV ONE (13:48)
[2021-09-16] MEDS ORDERED: CALCIUM CHLORIDE 1GM/10ML SYR IV ONE (14:14)
[2021-09-16 16:00] VITALS: BP 145/83
[2021-09-16 20:00] VITALS: BP 164/90
[2021-09-16] MEDS: FAMOTIDINE 20MG TABLET PO SCH (21:39)
[2021-09-16] MEDS: CLONIDINE 0.1MG TABLET PO PRN (21:39)
[2021-09-17] VITALS: BP 129/66
[2021-09-17] MEDS: IPRATROPIUM/ALBUTEROL 0.5-3(2.5)MG/3ML NEB NEB SCH ×4 (02:16→21:50)
[2021-09-17 04:00] VITALS: BP 134/71
[2021-09-17] MEDS: GABAPENTIN 100MG CAPSULE PO SCH ×2 (07:55→20:03)
[2021-09-17 08:11] LABS: EOSINOPHILS % 3.4 % (0.0-5.0); HEMATOCRIT. 27.5 % (42.0-52.0); HEMOGLOBIN. 8.7 g/dL (14.0-18.0); LYMPHOCYTES % 13.7 % (20.0-50.0); MEAN CORPUSCULAR HEMOGLOBIN 29.2 pg (28.0-32.0); MEAN CORPUSCULAR VOLUME 92.4 fL (80.0-94.0); MONOCYTES % 12.2 % (2.0-8.0); NEUTROPHILS % 69.7 % (40.0-76.0); PLATELET 403 x1000/uL (130-400); RED BLOOD CELL COUNT 2.97 mill/uL (4.7-6.1); RED CELL DISTRIBUTION WIDTH 17.7 % (11.6-14.6)
[2021-09-17 08:19] VITALS: BP 141/86
[2021-09-17 12:00] VITALS: BP 136/63
[2021-09-17] MEDS ORDERED: SODIUM POLYSTYRENE SULFONATE 15 G/60 ML BOT PO NR ×2 (12:30→16:45)
[2021-09-17 16:00] VITALS: BP 148/84
[2021-09-17 20:00] VITALS: BP 155/86
[2021-09-17] MEDS: FAMOTIDINE 20MG TABLET PO SCH (20:03)
[2021-09-18] VITALS: BP 151/82
[2021-09-18 03:35] VITALS: BP 146/79
[2021-09-18 04:37] VITALS: BP 149/72
[2021-09-18 07:26] LABS: BASOPHILS % 0.7 % (0.0-2.0); HEMATOCRIT. 27.6 % (42.0-52.0); HEMOGLOBIN. 8.8 g/dL (14.0-18.0); LYMPHOCYTES % 11.2 % (20.0-50.0); MEAN CORPUSCULAR HEMOGLOBIN 29.3 pg (28.0-32.0); MEAN CORPUSCULAR VOLUME 91.3 fL (80.0-94.0); MEAN PLATELET VOLUME 8.7 fl (7.4-10.4); MONOCYTES % 11.3 % (2.0-8.0); NEUTROPHILS % 74.8 % (40.0-76.0); PLATELET 382 x1000/uL (130-400); RED BLOOD CELL COUNT 3.02 mill/uL (4.7-6.1); RED CELL DISTRIBUTION WIDTH 17.6 % (11.6-14.6)
[2021-09-18 08:20] VITALS: BP 126/68
[2021-09-18] MEDS: GABAPENTIN 100MG CAPSULE PO SCH (09:34)
[2021-09-18 10:56] VITALS: BP 126/69
[2021-09-18 11:32] VITALS: BP 129/81
== END 2021-09-18 15:09 | DRG 710 ==
LOC: ER 09:43 → MICUSO 13:17 → SUPCPDRO 13:21 → 8WST 22:05 → MICUSO 23:11 → 7WST 08-21 15:00 → 6WST 09-05 19:10
PROVIDERS: ADMIT Internal Medicine; ATTEND Internal Medicine
PROC: 5A1D70Z Performance of Urinary Filtration, Intermittent, Less than 6 Hours Per Day (ICD-10-PCS; principal; 2021-08-20)
PROC: 5A1D70Z Performance of Urinary Filtration, Intermittent, Less than 6 Hours Per Day (ICD-10-PCS; 2021-08-22)
PROC: 5A1D70Z Performance of Urinary Filtration, Intermittent, Less than 6 Hours Per Day (ICD-10-PCS; 2021-08-24)
PROC: 5A1D70Z Performance of Urinary Filtration, Intermittent, Less than 6 Hours Per Day (ICD-10-PCS; 2021-08-25)
PROC: 5A1D70Z Performance of Urinary Filtration, Intermittent, Less than 6 Hours Per Day (ICD-10-PCS; 2021-08-27)
PROC: 5A1D70Z Performance of Urinary Filtration, Intermittent, Less than 6 Hours Per Day (ICD-10-PCS; 2021-08-29)
PROC: 5A1D70Z Performance of Urinary Filtration, Intermittent, Less than 6 Hours Per Day (ICD-10-PCS; 2021-08-30)
PROC: 5A1D70Z Performance of Urinary Filtration, Intermittent, Less than 6 Hours Per Day (ICD-10-PCS; 2021-09-02)
PROC: 5A1D70Z Performance of Urinary Filtration, Intermittent, Less than 6 Hours Per Day (ICD-10-PCS; 2021-09-03)
PROC: 5A1D70Z Performance of Urinary Filtration, Intermittent, Less than 6 Hours Per Day (ICD-10-PCS; 2021-09-05)
PROC: 02HV33Z Insertion of Infusion Device into Superior Vena Cava, Percutaneous Approach (ICD-10-PCS; 2021-09-05)
PROC: B5181ZA Fluoroscopy of Superior Vena Cava using Low Osmolar Contrast, Guidance (ICD-10-PCS; 2021-09-05)
PROC: B548ZZA Ultrasonography of Superior Vena Cava, Guidance (ICD-10-PCS; 2021-09-05)
PROC: 02PYX3Z Removal of Infusion Device from Great Vessel, External Approach (ICD-10-PCS; 2021-09-05)
PROC: 5A1D70Z Performance of Urinary Filtration, Intermittent, Less than 6 Hours Per Day (ICD-10-PCS; 2021-09-06)
PROC: 5A1D70Z Performance of Urinary Filtration, Intermittent, Less than 6 Hours Per Day (ICD-10-PCS; 2021-09-09)
PROC: 30233N1 Transfusion of Nonautologous Red Blood Cells into Peripheral Vein, Percutaneous Approach (ICD-10-PCS; 2021-09-10)
PROC: 5A1D70Z Performance of Urinary Filtration, Intermittent, Less than 6 Hours Per Day (ICD-10-PCS; 2021-09-11)
PROC: B51W1ZZ Fluoroscopy of Dialysis Shunt/Fistula using Low Osmolar Contrast (ICD-10-PCS; 2021-09-11)
PROC: B5181ZZ Fluoroscopy of Superior Vena Cava using Low Osmolar Contrast (ICD-10-PCS; 2021-09-11)
PROC: 5A1D70Z Performance of Urinary Filtration, Intermittent, Less than 6 Hours Per Day (ICD-10-PCS; 2021-09-12)
PROC: 05C83ZZ Extirpation of Matter from Left Axillary Vein, Percutaneous Approach (ICD-10-PCS; 2021-09-12)
PROC: 05WY3JZ Revision of Synthetic Substitute in Upper Vein, Percutaneous Approach (ICD-10-PCS; 2021-09-12)
PROC: 5A1D70Z Performance of Urinary Filtration, Intermittent, Less than 6 Hours Per Day (ICD-10-PCS; 2021-09-15)
PROC: 041 Lower Arteries, Bypass (ICD-10-PCS; 2021-09-16)
PROC: 5A1D70Z Performance of Urinary Filtration, Intermittent, Less than 6 Hours Per Day (ICD-10-PCS; 2021-09-17)
DX: A41.89 Other specified sepsis (principal); J96.01 Acute respiratory failure with hypoxia; J12.82 Pneumonia due to coronavirus disease 2019; I50.43 Acute on chronic combined systolic (congestive) and diastolic (congestive) heart failure; U07.1 COVID-19; I82.C11 Acute embolism and thrombosis of right internal jugular vein; Z76.82 Awaiting organ transplant status; I13.2 Hypertensive heart and chronic kidney disease with heart failure and with stage 5 chronic kidney disease, or end stage renal disease; N18.6 End stage renal disease; D64.9 Anemia, unspecified; E87.5 Hyperkalemia; Z91.15 Patient's noncompliance with renal dialysis; Z99.2 Dependence on renal dialysis; I82.612 Acute embolism and thrombosis of superficial veins of left upper extremity; G62.9 Polyneuropathy, unspecified; R74.01 Elevation of levels of liver transaminase levels; G57.90 Unspecified mononeuropathy of unspecified lower limb; Z88.8 Allergy status to other drugs, medicaments and biological substances; Z79.01 Long term (current) use of anticoagulants; Z79.899 Other long term (current) drug therapy; Z91.14 Patient's other noncompliance with medication regimen; T82.868A Thrombosis due to vascular prosthetic devices, implants and grafts, initial encounter; Y83.8 Other surgical procedures as the cause of abnormal reaction of the patient, or of later complication, without mention of misadventure at the time of the procedure; Y92.238 Other place in hospital as the place of occurrence of the external cause; M25.431 Effusion, right wrist; K76.9 Liver disease, unspecified
CPT/HCPCS: 36415; 36556; 36589; 36600; 36901; 71045; 71250; 72100; 73110; 73200; 74176; 76700; 76937; 77001; 78806; 80048; 80053; 80202; 82375; 82550; 82553; 82728; 82805; 82962; 83615; 84132; 84145; 84484; 85014; 85018; 85025; 85027; 85049; 85384; 86140; 86705; 86706; 86709; 86803; 86850; 86900; 86920; 87340; 87426; 87635; 93005; 93306; 93922; 93970; 93971; 94640; 97116; 97162; 99291; A9547; C1725; C1752; C1766; C1768; C1769; C1884; C1887; C1893; J0456; J0610; J0690; J0696; J0885; J1100; J1170; J1200; J1642; J1644; J1650; J1815; J2185; J2250; J2270; J2405; J2543; J2704; J2920; J3010; J3370; J3490; J7030; J7040; J7050; J7060; P9016; Q9967

== ENCOUNTER 2021-09-19 08:22 | Emergency (ER) | payer OTHER ==
[~2021-09-19] VITALS: Ht 165.1 cm; Wt 90.2 kg
[~2021-09-19 08:22] MED LIST: ALBU90AE INH; APIX5TAB PO; ATOR10TA69 PO; BENA10TA74 PO; CALC667C PO; CHOL-36; DEXA4TAB PO; FOLI0.8T23 MT; FURO40TA5 PO
[2021-09-19] MEDS ORDERED: LIDOCAINE HCL 1% 20ML VIAL (Pyxis) INJ ONE (09:30)
[2021-09-19 14:57] VITALS: BP 143/84
== END 2021-09-19 15:20 | disposition home or self-care (01) ==
LOC: ER 08:22
DX: Z49.01 Encounter for fitting and adjustment of extracorporeal dialysis catheter (principal); I10 Essential (primary) hypertension; Z79.899 Other long term (current) drug therapy; Z98.890 Other specified postprocedural states
CPT/HCPCS: 36580; 99285; C1752; J3490; J7040; Z7610

== ENCOUNTER → 2022-09-17 | Outpatient (CLI) | payer MEDICARE, MEDICAID | END | disposition home or self-care (01) | LOC: MRI 09:47 | PROVIDERS: ATTEND Neurological Surgery | DX: M47.814 Spondylosis without myelopathy or radiculopathy, thoracic region (principal); M51.24 Other intervertebral disc displacement, thoracic region | CPT/HCPCS: 72146 ==

== ENCOUNTER → 2022-10-29 | Outpatient (CLI) | payer MEDICARE, MEDICAID | END | disposition home or self-care (01) | LOC: RAD 08:42 | PROVIDERS: ATTEND Internal Medicine | DX: I51.7 Cardiomegaly (principal); R06.02 Shortness of breath | CPT/HCPCS: 71046 ==

== ENCOUNTER → 2023-05-04 | Outpatient (CLI) | payer MEDICARE, MEDICAID | END | disposition home or self-care (01) | LOC: CT 10:30 | PROVIDERS: ATTEND Internal Medicine Critical Care Medicine | DX: R91.1 Solitary pulmonary nodule (principal); J84.89 Other specified interstitial pulmonary diseases; J90 Pleural effusion, not elsewhere classified; I51.7 Cardiomegaly | CPT/HCPCS: 71250 ==

== ENCOUNTER 2024-10-18 11:41 | Emergency (ER) | payer MEDICARE, MEDICAID ==
[~2024-10-18] VITALS: Ht 165.1 cm; Wt 100.0 kg
[2024-10-18 11:46] VITALS: O2SAT 97
[2024-10-18 12:00] VITALS: BP 104/62; PULSE 88; RESP 14; TEMP 36.9; O2SAT 97
[2024-10-18] MEDS: LIDOCAINE HCL/EPINEPHRINE 1%-EPI 1:100,000 20ML VIAL INFIL ONE (12:47)
[2024-10-18 13:01] LABS: BASOPHILS % 0.7 % (0.0-2.0); EOSINOPHILS % 6.9 % (0.0-5.0); HEMATOCRIT. 34.9 % (42.0-52.0); HEMOGLOBIN. 11.1 g/dL (14.0-18.0); LYMPHOCYTES % 10.8 % (20.0-50.0); MEAN CORPUSCULAR HEMOGLOBIN 29.6 pg (28.0-32.0); MEAN CORPUSCULAR HGB CONC 31.9 g/dL (31.0-37.0); MEAN CORPUSCULAR VOLUME 92.5 fL (80.0-94.0); MEAN PLATELET VOLUME 8.9 fl (7.4-10.4); MONOCYTES % 14.2 % (2.0-8.0); NEUTROPHILS % 67.4 % (40.0-76.0); PLATELET 287 x1000/uL (130-400); RED BLOOD CELL COUNT 3.77 mill/uL (4.7-6.1); RED CELL DISTRIBUTION WIDTH 21.1 % (11.6-14.6)
[2024-10-18 13:08] LABS: POTASSIUM 4.7 mEq/L (3.5-5.1)
[2024-10-18 13:09] LABS: CALCIUM 9.2 mg/dL (8.7-10.4)
[2024-10-18 13:29] LABS: DIFFERENTIAL COMMENT 1
[2024-10-18 13:47] LABS: CREATININE 9.3 mg/dL (0.6-1.3)
== END 2024-10-18 13:52 | disposition home or self-care (01) ==
LOC: ER 11:41 → EDBEDREQ 13:14 → EDBEDREQTM 13:14 → ER 13:52 → CANBEDREQ 13:57
DX: T82.590A Other mechanical complication of surgically created arteriovenous fistula, initial encounter (principal); I10 Essential (primary) hypertension; Z79.01 Long term (current) use of anticoagulants; Z79.52 Long term (current) use of systemic steroids; Z79.899 Other long term (current) drug therapy; Z88.8 Allergy status to other drugs, medicaments and biological substances; Z99.2 Dependence on renal dialysis; Y92.89 Other specified places as the place of occurrence of the external cause
CPT/HCPCS: 99291; 80048; 85025; 86850; 86900; 86901; 36415; 12001; J2004; 13120